=== PATIENT | male | born 1980 | race Caucasian/White ===

== ENCOUNTER 2017-12-04 09:10 | Observation (INO) | payer BC, OTHER ==
[2017-12-04] MEDS ORDERED: NS 0.9% 1000 ML* 1,000 ML IV ONE (09:15)
--- NOTE | 2017-12-04 09:22 | ED ---
HPI Chest Pain - HPI Summary HPI Summary: Patient is a 37 y/o M BIBA from [place] w/ c/o chest pain onsetting at 0 today. On triage, "Pt with CP since since 399, states breathing was off, but not SOB. Elevated trop and CK at [facility]." He states he was already awake when chest pain onset. He states that he has been awake for more that 24 hours. After being seen at [facility], patient was sent to [facility] ED. EMS reports he was given nitro, lovenox, and aspirin. In the room, he states that he is not experiencing chest pain but feels chest "tingling" presently. He also reports that he has been experiencing neck pain, which is still present. Per EMS, patient stated on the way over that he has been under a lot of stress and lost his job recently due to various sicknesses. EMS states patient was experiencing heat exhaustion at work and has not been able to work since October 19 due to high CK levels. Patient does not smoke, has not had alcohol in a year. No home medications reported. He notes dad has cardiac problems. Patient denies HTN, HLD. On triage, nothing is noted to aggravate/alleviate Sx. - History of Current Complaint Time Seen by Provider: 12/04/17 09:13 Hx Obtained From: Patient Onset/Duration: Started Hours Ago - onset 399 today, Still Present - neck pain , Resolved - chest pain, now described as chest tingling Timing: Constant, Lasting Hours - onset 399 Current Severity: None - pain denied Pain Intensity: 0 Pain Scale Used: 0-10 Numeric - 0/10 Character: Other: - tingling Aggravating Factor(s): Nothing Alleviating Factor(s): Nothing Associated Signs and Symptoms: Positive: Other: - neck pain, breathing is "off" , chest tingling - Allergy/Home Medications Allergies/Adverse Reactions: Allergies Allergy/AdvReac Type Severity Reaction Status Date / Time sulfamethoxazole Allergy Swelling Verified 12/04/17 09:28 [From Bactrim] trimethoprim [From Bactrim] Allergy Swelling Verified 12/04/17 09:28 Home Medications: Home Medications NK [No Home Medications Reported] 12/04/17 [History Confirmed 12/04/17] PMH/Surg Hx/FS Hx/Imm Hx Endocrine/Hematology History: Reports: Other Endocrine/Hematological Disorders - NEGATIVE: HLD Cardiovascular History: Denies: Hx Hypertension - Family History Known Family History: Positive: Cardiac Disease - father - Social History Alcohol Use: None - reports not drinking in a year Smoking Status (MU): Never Smoked Tobacco Review of Systems Positive: Chest Pain - in room, described as chest tingling Positive: Other - breathing is described as "off" Positive: Other - neck pain All Other Systems Reviewed And Are Negative: Yes Physical Exam - Summary Physical Exam Summary: Appearance: Well appearing, no pain distress Skin: warm, dry, reflects adequate perfusion Head/face: normal Eyes: EOMI, MIQUEL ENT: normal Neck: supple, non-tender Respiratory: CTA, breath sounds present Cardiovascular: RRR, pulses symmetrical Abdomen: non-tender, soft Bowel Sounds: present Musculoskeletal: normal, strength/ROM intact Neuro: normal, sensory motor intact, A&Ox3 Triage Information Reviewed: Yes Vital Signs On Initial Exam: Initial Vitals Temp Pulse Resp BP Pulse Ox 98.3 F 64 18 179/106 98 12/04/17 09:18 12/04/17 09:18 12/04/17 09:18 12/04/17 09:18 12/04/17 09:18 Vital Signs Reviewed: Yes Diagnostics - Laboratory Lab Statement: Any lab studies that have been ordered have been reviewed, and results considered in the medical decision making process. - EKG 0920 Cardiac Rate: NL - rate of 61 bpm EKG Rhythm: Sinus Rhythm ST Segment: Normal EKG Interpretation: normal axis, normal intervals Chest Pain Course/Dx - Course Course Of Treatment: Patient presents stable without chest pain as a transfer from outside hospital. Patient had presented there with chest pain and was found to have elevated troponin. His EKG was nondiagnostic there. Here, an EKG was repeated and also nondiagnostic. Troponin is again elevated this time slightly higher. He was given Lovenox there and maintained with as needed nitroglycerin. Nitroglycerin paste was applied here. Hospitalist was contacted and will admit the patient. - Chest Pain Differential Diagnosis/HQI/PQRI: Acute SC, ACS, Angina - Diagnoses Provider Diagnoses: Acute coronary syndrome, Chest pain, Non-ST elevation SC (NSTEMI) - Provider Notifications Discussed Care Of Patient With: Vi Michael Time Discussed With Above Provider: 09:13 Instructed by Provider To: Other - Discussed patient's case with Dr. Guillory at 0913. Guillory accepts patient for admission to [facility]. Discharge - Sign-Out/Discharge Documenting (check all that apply): Patient Departure - admit - Discharge Plan Condition: Good Disposition: ADMITTED TO [facility] - Billing Disposition and Condition Condition: GOOD Disposition: Admitted to [facility] - Attestation Statements Document Initiated by Scribe: Yes Documenting Scribe: Hammad Medina Provider For Whom Rodrie is Documenting (Include Credential): Jermaine Jesus MD Scribe Attestation: Hammad Montilla, scribed for Jermaine Jesus MD on 12/04/17 at 1234. Scribe Documentation Reviewed: Yes Provider Attestation: The documentation as recorded by the Hammad bravo accurately reflects the service I personally performed and the decisions made by me, Jermaine Jesus MD
[2017-12-04] MEDS ORDERED: Nitroglycerin 2% OINT* 1 GM PAK TOPICAL ONE (10:38)
[2017-12-04] MEDS ORDERED: Morphine INJ* 2 MG/ML 1 ML SYRINGE (TWO MG - NEW SYRINGE VERSION) IV ONE (10:38)
[2017-12-04] MEDS ORDERED: Acetaminophen TAB* 325 MG PO PRN (11:40)
[2017-12-04] MEDS: NS 0.9% 1000 ML* 1,000 ML IV SCH (13:35)
[2017-12-04] MEDS ORDERED: Perflutren Lipid Microsphere* 3 ML VIAL ONE (14:08)
--- NOTE | 2017-12-04 14:20 | HP ---
CC: Dr. aMrk Franics; Dr. Nick Walsh * HISTORY AND PHYSICAL: DATE OF ADMISSION: 12/04/17 PRIMARY CARE PROVIDER: Dr. Nick Walsh ATTENDING PHYSICIAN: Dr. Vi Owusu * (dictated by Sami Campoverde NP) CHIEF COMPLAINT: Chest pain. HISTORY OF PRESENT ILLNESS: Mr. 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 He felt he was hydrated that day , drinking 12 bottles of water. He said it was 90 degrees out. He felt lightheaded and his face felt tight. He had difficulty speaking, was only able to speak one word at a time. He called EMS and went to the ER in [place], [place] where he received 2 L of saline, was found to have elevated creatinine of 1.5. He was told to follow up with his primary care provider. He followed up with his primary care provider, he was told that his CK was greater than 1000 , he followed up for a month with routine checks on his creatinine. He was then referred to Dr. Mark Francis with Rheumatology when his CK continued to be elevated. He states he was started on prednisone, but when that caused him to be hypertensive, he stopped taking the prednisone, he is unsure why he was placed on the prednisone. He reports having an appointment this 12/07/17 , with his [employer]. He also reports having an appointment setup with neurologist for test of his muscles. I suspect this is an EMG, but the patient is unsure what the test is. He states that over the last 2 months, he has been off of work due to having muscle soreness and tenderness and just feeling unwell. He states that he drove to [place] yesterday to pick stuff up from work while walking around in a [employer] for approximately 30 minutes. He started feeling funny. He checked his blood pressure was 174/114. The patient also reports feeling easily fatigued while doing activity such as mowing the lawn over the last 2 months. He drove home from [place], arriving home at approximately 03:15 a.m. when he was feeling unwell. He went to lay down and developed chest pain that he described as a pressure. His fiancee checked his blood pressure was elevated, so they presented to the [place] [facility]. While at the [place] ER, he received 1 L of normal saline, subcu Lovenox, aspirin to Nitro, and his chest pain essentially resolved. While there, he had labs significant for elevated troponin of 0.03. He had a CK that was 263. His creatinine was slightly elevated at 1.2. The other labs were unremarkable. He had an EKG showing a sinus bradycardia, rate of 56. He also had a chest x-ray, which I am unable to find the results for at this time. He was then transferred to the [facility] Emergency Room for further cardiac workup. While in the ER at [facility], he had an EKG showing a sinus rhythm with a rate of 61, no acute sign of ischemia similar to previous EKG done on the same day at [place]. The troponin of 0.05, a CK of 225. The patient was essentially chest pain-free. He denies any recent fevers, chills, shortness of breath, although he feels as though his breathing is "slow" at times. He reports feeling intermittently lightheaded and hot. Denies any diaphoresis or discomfort or numbness, tingling, radiating to his jaw. He reports a tingling sensation in his chest. He denies urinary symptoms, but states that his urine is often yellow to a dark color and not clear. He also reports a foul-smelling urine. Additionally, the patient continues to complain of muscle soreness and tenderness. His left chest pain is reproducible with palpation to his left upper chest. The patient reports being hypertensive over the last 2 months. Due to his risk factors and his lab work, the hospitalists were asked to evaluate the patient for admission. PAST MEDICAL HISTORY: None. ALLERGIES: SULFA, BACTRIM. FAMILY HISTORY: The patient's father, paternal uncle, paternal aunt, and paternal grandfather all have history of heart disease. His father has required numerous stents in addition to his other paternal family members. He is unsure of what age their heart disease started. He denies any family history of diabetes and cancer. His maternal family has a history of ALS. SOCIAL HISTORY: He denies tobacco, alcohol, recreational drug use. He lives with his fiancee, Bindu Parra. His fiancee will be historian and decision maker. He is unable to make decisions for himself. REVIEW OF SYSTEMS: I performed an 11-point review of systems. All the pertinent positives and negatives are mentioned in the history of present illness. The remaining review of systems are negative. PHYSICAL EXAMINATION GENERAL APPEARANCE: The patient is alert, pleasant, and appears to be in no acute distress. VITAL SIGNS: Temperature 98.3, heart rate 61, respiratory rate 18, O2 sat 98% on room air, blood pressure 139/95. HEENT: Normocephalic, atraumatic. Pupils are equal and reactive to light. Extraocular movements are intact. RESPIRATORY: There is no accessory muscle. Lungs are clear to auscultation. CARDIOVASCULAR: Regular rate and rhythm. S1 and S2 present. There are no murmurs, rubs, or gallops heard. ABDOMEN: Soft, nontender, nondistended, but obese. There are bowel sounds present x4. EXTREMITIES: No lower extremity edema. DP and PT pulses are 2+ and symmetric. MUSCULOSKELETAL: There is no clubbing or cyanosis noted. The patient exhibits good strength in all extremities. The patient has reproducible chest pain with palpation to his right upper chest. NEUROLOGICAL: The patient is alert and oriented x4. Cranial nerves II through XII are grossly intact. PSYCHOLOGICAL: The patient is calm and cooperative. SKIN: There are no rashes or abnormalities seen. DIAGNOSTIC STUDIES/LAB DATA: Labs from [facility], sodium 140, potassium 4.0, chloride 103, CO2 29, BUN 15, creatinine 1.2, glucose 108. White blood cell count 6.12, hemoglobin 16.1, hematocrit 45, platelet count 40, glucose 281, CK 263, troponin 0.03. Repeat labs here at [facility] today, troponin 0.05, CK 225. EKG at [place] shows sinus bradycardia, rate of 56, no acute signs of ischemia. Repeat EKG here at [facility] shows sinus rhythm with a rate of 61. No acute signs of ischemia similar to previous from [place] today. IMPRESSION: Mr. Daniels is a 37-year-old male with past medical history significant for recent hypertension that is currently untreated, who presented to the emergency room with complaints of chest pain, was transferred from [facility] to [facility] for further cardiac workup. He will be admitted as an observation for chest pain. ASSESSMENT/PLAN: 1. Chest pain. At this time, the patient has an unclear etiology. He has risk factors with a DREW score of 1 including his obesity, hypertension, family history, and an elevated troponin that this could be cardiac in nature, but the pain is also reproducible with palpation and the patient is also very anxious about his unknown diagnosis. This is then being worked up for over the last 2 months. I am going to monitor him on telemetry, trend his troponins. I am going to get an echocardiogram. If his troponins do not elevate any further, I will get an exercise nuclear stress test tomorrow. If his troponin continues to elevate, we will ask Cardiology to consult. We will check fasting lipids in the morning. Start the patient on the statin accordingly. 2. Hypertension. The patient reports being hypertensive intermittently over the last 2 months with the systolic blood pressures into the 200s, this could be contributing to his chest pain. His blood pressures have improved during his time in the emergency room down to 139/95, continued to walk, monitor his blood pressure. If he continues to be hypertensive, I will start him on an antihypertensive. 3. Acute kidney injury. I am unsure what the patient's baseline creatinine is , he was elevated 2 months ago in the emergency room with a creatinine of 1.5, he is 1.2 today. I will give him some gentle IV hydration overnight, recheck his labs in the morning. I will also get a renal ultrasound to evaluate for causes of his acute versus elevated creatinine. 4. Obesity. His BMI is 37, be on a heart-healthy diet. He has been encouraged to wash what he eats. 5. Recent history of fatigue and muscle tenderness. The patient is following with Rheumatology. I will try to get his records from the salesperson recreational vehicles in [facility]. 6. Fluids, electrolytes, and nutrition. He will be on a heart-healthy diet, n.p.o. after midnight. First stress testing in the morning. 7. Code status. Full code. 8. DVT prophylaxis. He is at low risk and will be encouraged to ambulate. 9. Disposition. Observation. TIME SPENT: Time for this admission was approximately 60 minutes, greater than half of that was spent with the patient discussing medications, past medical history, the events leading up to his arrival today, and performing a physical examination. The case has been reviewed with the attending, Dr. wOusu, who agrees with the plan of care. SAMI CAMPOVERDE, MEDICAL SOCIOLOGIST [id number]/[facility] #: [id number] DERREK
--- NOTE | 2017-12-04 16:45 | ECHO ---
Patient: SANJUANITA ELY [facility] Rec#: [id number] : 1980 Date: 12/04/2017 Age: 37y Height: 178 cm / 70.1 in Weight: 118 kg / 260.1 lbs Sex: M BSA: 2.3 Room#: [facility] Admit Date#: 12/04/2017 Type: Inpatient Referring: Alisa Ojeda NP Reading: Saud Cobos MD Substance Abuse Nurse: Adela Holliday RN RDCS Transthoracic Echocardiogram Indication: Chest pain BP: 150/92 HR: 61 Rhythm: NSR Findings History: HTN, obesity Left Ventricle: The left ventricular chamber size is normal. Moderate concentric left ventricular hypertrophy is observed. Global left ventricular wall motion and contractility are within normal limits. There is normal left ventricular systolic function. The estimated ejection fraction is 55-60%. There is no consistent Doppler evidence of clinically significant diastolic dysfunction. Left Atrium: The left atrium is mildly dilated. Right Ventricle: The right ventricle wall thickness is moderately increased. The right ventricle is slightly dilated. The right ventricular global systolic function is normal. Right Atrium: The right atrium is slightly dilated. Aortic Valve: The aortic valve is trileaflet. The aortic valve leaflets are mildly thickened. There is a trace of aortic regurgitation. There is no evidence of aortic stenosis. Mitral Valve: The mitral valve leaflets are mildly thickened. There is a trace of mitral regurgitation. There is no evidence of mitral stenosis. Tricuspid Valve: The tricuspid valve leaflets are normal. There is trace tricuspid regurgitation. Unable to estimate the right ventricular systolic pressure. There is no tricuspid stenosis. Pulmonic Valve: The pulmonic valve appears normal. There is a trace pulmonic regurgitation. There is no pulmonic stenosis. Pericardium: There is no significant pericardial effusion. A pericardial fat pad is visualized. Aorta: There is no dilatation of the ascending aorta. There is no dilatation of the aortic arch. There is no dilation of the aortic root. Pulmonary Artery: The main pulmonary artery appears normal. Venous: The inferior vena cava appears normal in size. There is a greater than 50% respiratory change in the inferior vena cava dimension. Contrast: Definity was used to optimize study. A total of 3 ml of diluted Definity was given IV. Conclusions Global left ventricular wall motion and contractility are within normal limits. There is normal left ventricular systolic function. The estimated ejection fraction is 55-60%. The right ventricular global systolic function is normal. There is a trace of aortic regurgitation. There is a trace of mitral regurgitation. There is trace tricuspid regurgitation. Unable to estimate the right ventricular systolic pressure. There is no significant pericardial effusion. Measurements Name Value Normal Range RVDdMajor (2D) 4.1 cm (2.2 - 4.4) RVAW (2D) 1.2 cm (0.2 - 0.5) RAd ISD 4CH 4.8 cm (3.4 - 4.9) RA (A4C)W 4.7 cm (2.9 - 4.6) IVSd (2D) 1.6 cm (0.6 - 1) LVPWd (2D) 1.3 cm (0.6 - 1) LVIDd (2D) 4.7 cm (3.6 - 5.4) LVIDs (2D) 3.3 cm - LV FS (2D) 30 % (25 - 45) Aortic Annulus 2.6 cm (1.4 - 2.6) Ao root diameter (2D) 3.4 cm (2.1 - 3.5) Ascending Ao 3.3 cm (2.1 - 3.4) LA dimension (AP) 2D 3.8 cm (2.3 - 3.8) LAd ISD 4CH 5.6 cm (2.9 - 5.3) LA ISD 4CH W 4.1 cm (2.5 - 4.5) Name Value Normal Range LA ESV BP (A/L) index 26 ml/m2 - Name Value Normal Range MV E-wave Vmax 0.63 m/sec - MV deceleration time 222 msec - MV A-wave Vmax 0.6 m/sec - MV E:A ratio 1.1 ratio - LV septal e' Vmax 0.06 m/sec - LV lateral e' Vmax 0.11 m/sec - LV E:e' septal ratio 10.5 ratio - LV E:e' lateral ratio 5.7 ratio - Name Value Normal Range AV Vmax 1.1 m/sec - AV VTI 23.5 cm - AV peak gradient 5 mmHg - AV mean gradient 3 mmHg - LVOT Vmax 0.85 m/sec - LVOT VTI 16.1 cm - LVOT peak gradient 3 mmHg - LVOT mean gradient 2 mmHg - PHUONG Vmax 0.76 m/sec - Name Value Normal Range IVC diameter 1 cm - Name Value Normal Range PV Vmax 0.67 m/sec -
--- NOTE | 2017-12-04 17:54 | RAD ---
INDICATION: Elevated creatinine. COMPARISON: There are no relevant prior studies available for comparison. TECHNIQUE: Multiple real-time images of the kidneys and urinary bladder were obtained. FINDINGS: The kidneys are normal in shape and echogenicity. The right kidney measured 13.3 x 5.4 x 5.9 cm and the left kidney measured 13.5 x 5.3 x 6.1 cm. No significant focal renal abnormality or hydronephrosis is seen. The bladder is normal in contour. No intraluminal abnormalities are seen. No bladder wall thickening is noted. There are bilateral ureteral jets present within the urinary bladder. The prostate gland measured 3.5 x 2.4 x 4.6 cm for a total volume of 20.0 ml. The prevoid volume was 596 ml and a post void residual was 0 ml. IMPRESSION: NEGATIVE EXAM.
[2017-12-04 22:40] LABS: Urine Appearance Clear; Urine Blood Negative (Negative); Urine Color Straw; Urine Ketones Negative (Negative); Urine Protein Negative (Negative); Urine Specific Gravity 1.012 (1.010-1.030); Urine Urobilinogen Negative (Negative)
[2017-12-05] MEDS: NS 0.9% 1000 ML* 1,000 ML IV SCH (04:15)
[2017-12-05 06:18] LABS: EGFR Non-African American 84.6 (>60)
--- NOTE | 2017-12-05 11:59 | RAD ---
Edited for charges. INDICATION: Chest pain in a patient with multiple cardiac risk factors COMPARISON: None TECHNIQUE: SPECT imaging was performed. Rest images were acquired following the intravenous injection of 10.2 millicuries of technetium 99m tetrofosmin at 0655 hours. At 1038 hours stress images were acquired following the intravenous administration of 25.89 millicuries of technetium 99m tetrofosmin. A target heart rate of 182 bpm was achieved. Image quality is limited by lack of attenuation correction due to the patient's inability to elevate his arms over his head for CT imaging. FINDINGS: There are no defects of the stress-induced or fixed nature. The cardiac chamber size is normal. There are no wall motion abnormalities. The ejection fraction is calculated at 58% during stress. IMPRESSION: No scintigraphic evidence of ischemia or infarction. ASSESSMENT: Low risk Based on imaging criteria from ACC/AHA 2002 Guideline Update for the Management of Patients With Chronic Stable Angina Table 23. Noninvasive Risk Stratification. MTDD
[2017-12-05 12:58] VITALS: BP 164/85
--- NOTE | 2017-12-05 21:09 | DS ---
CC: Vi Owusu MD; Dr. Jermaine Jesus * DISCHARGE SUMMARY: DATE OF ADMISSION: 12/04/17 DATE OF DISCHARGE: 12/05/17 DISCHARGE DIAGNOSES: 1. Chest pain, likely musculoskeletal and noncardiac pain, stress test is low probability for actionable coronary artery disease. 2. Hypertension. 3. Mild CPK elevation, improved from previous. DISCHARGE MEDICATIONS: 1. Tylenol 650 mg p.o. q.6 p.r.n. 2. Amlodipine 5 mg p.o. daily. HISTORY OF PRESENT ILLNESS/HOSPITAL COURSE: The patient is a 37-year-old gentleman with no previous documentations of past medical history, who currently resides in [place], but spends most of his time during the past 1 or 2 months here in [place] with his girlfriend given he is still deciding on which state to live in. He mentions that he has a primary care physician in [place], and 2 months prior he was admitted in [place], [place], after working in the hot weather and was found to have an elevated creatinine as well as CPK that was greater than 1000. He mentioned that he felt lightheaded and he felt that his face was tight and has had difficulty speaking. However, he did not remember the actual diagnoses that was given to him at that time, although he felt that he might have had heat stroke which is certainly consistent with his signs and symptoms. Apparently, he was also seen by his primary care physician the day after his discharge and was told that his CPK was still elevated, but slightly improved from the day previously. He was subsequently referred to Dr. Mark Francis of Rheumatology, who was surprised that he is seeing a patient that has a CPK less than 5000. He was then started on prednisone, although he know not what the reason was, and apparently there was some discussion with his assistant professor of economics that he has a family history of Amy Gehrig disease. He was then referred to a neurologist and has an appointment on 12/07/17 for an EMG once again in [place]. He mentions that while in [place], he went to a [employer] [place] for about an hour from store to store with his girlfriend and started feeling some muscle soreness and by the time that he arrived in his girlfriend's place here in [place] at around 3:15 a.m., he was feeing unwell and when he lied down, he then subsequently developed chest pain that he then described as a chest pressure. Therefore, he presented to [facility] where he received 1 L of normal saline, subcu Lovenox, aspirin, and nitro and his chest pain then subsequently resolved. He also was found to have a mildly elevated troponin; however, subsequent troponin draws were otherwise unremarkable and normal. It is thought that he his mildly elevated troponin is due to his mildly elevated CPK at 263. He then underwent a Lexiscan stress test, which showed low probability for any actionable CADs at this time, although he was found to be hypertensive on presentation and slightly hypertensive during his hospital course and hence he was advised to lose weight and to watch his salt intake and essentially diet modifications and the start of 5 mg of amlodipine. I have told him that his history is quite unusual with the CPK of even for a diagnosed heat stroke 2 months prior, to have still a mildly elevated CPK at this time. 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 He mentions he understands the above and will do so. He had been advised to follow up and/or call his PCP within 3 days post DC and to follow up with his assistant professor of economics and neurologist as planned and ask them to send us the records for any future encounters with our practice. He was advised to lose weight and to avoid too much salt in his food, more specifically less than 2 g per day, which should lead to improved BPs and at times discontinuation of antihypertensives in some patients, especially for a relatively young patient such as himself. He was advised that if he is having problems and/or if his symptoms worsen, to call his PCP first to see if his concerns can be addressed in a timely manner and if not, since he spends most of his time in [place] prior to going to the ER, he was advised to call [facility] to discuss his concerns to see whether it is appropriate for him to be seen in the clinic versus the ER. He was advised to call my office regarding any questions, concerns or further clarifications regarding his discharge plans and prescriptions, and he was advised to take his medications as prescribed. He was also advised to continue to hydrate himself and to avoid any strenuous activities until any underlying myositis has been ruled out by either his assistant professor of economics or neurologist given he certainly seems to be at an increased risk of myopathy given his history. REVIEW OF SYSTEMS: He denied any recent headaches, dizziness, fevers, chills, nausea, vomiting, chest pain, shortness of breath, increased cough nor sputum production, abdominal pain, diarrhea, constipation, pain and/or increased urination, myalgias, arthralgias, throat pain, or new skin lesions. The rest of the 14-point review of systems are otherwise unremarkable. PHYSICAL EXAMINATION: Revealed the most recent vital signs of records with blood pressure of 164/85, 97.8 degrees Fahrenheit, 68 beats per minute heart rate, 20 per minute respiratory rate, saturating at 97% on room air. General Appearance: The patient is awake, alert, and oriented x3, not in acute distress. HEENT: Normocephalic, atraumatic. PERRLA. Extraocular muscles intact. Negative for icterus. Moist oral mucosa. Negative throat erythema. Neck is soft, supple with no cervical lymphadenopathy. No JVD. Heart: S1, S2 within normal limits. Regular rate and rhythm. No murmurs, rubs, or gallops. Chest: Clear to auscultation bilaterally. Good air entry. No wheezes, rales, or rhonchi. Abdomen is soft, nondistended, nontender. Normoactive bowel sounds x4 quadrants. Extremities: No cyanosis, clubbing, or edema. Psychiatric: No active psychosis, depression, suicidal or homicidal ideation. Skin is warm to touch. TIME SPENT: The total time spent evaluating patient, reviewing pertinent data, and appropriate documentation is greater than 30 minutes. [id number] #: [id number] DERREK
== END 2017-12-05 18:08 | disposition home or self-care (01) ==
LOC: ED 09:10 → MEDTELE 09:56
PROVIDERS: ADMIT Internal Medicine; ATTEND Student in an Organized Health Care Education/Training Program
DX: R07.9 Chest pain, unspecified (principal); I10 Essential (primary) hypertension; R79.89 Other specified abnormal findings of blood chemistry; Z88.2 Allergy status to sulfonamides; Z88.8 Allergy status to other drugs, medicaments and biological substances; E66.9 Obesity, unspecified; N17.9 Acute kidney failure, unspecified; R53.83 Other fatigue; M54.2 Cervicalgia; R06.09 Other forms of dyspnea; I51.7 Cardiomegaly; R94.31 Abnormal electrocardiogram [ECG] [EKG]; Z79.899 Other long term (current) drug therapy
CPT/HCPCS: 36415; 76770; 78452; 80048; 80061; 81003; 82550; 84484; 93005; 93017; 93306; 96361; 96374; 99283; A9270-GY; A9502; C8929; G0378; J2270